=== PATIENT | female | born 1995 | race Native Hawaiian/Other Pacific Islander ===

== ENCOUNTER 2018-08-22 02:29 | Emergency (ER) | payer MEDICAID ==
[~2018-08-22] VITALS: Ht 177.8 cm; Wt 75.3 kg
[2018-08-22 02:50] VITALS: Ht 177.8 cm; Wt 75.3 kg
[2018-08-22 06:37] VITALS: BP 107/71
== END 2018-08-22 06:37 | disposition home or self-care (01) ==
LOC: ED 02:29
DX: N34.2 Other urethritis (principal)
CPT/HCPCS: 87491; 87591; J0696